=== PATIENT | female | born 1985 | race Two or more races ===

== ENCOUNTER 2018-12-23 07:31 | Emergency (ER) | payer SELFPAY ==
[~2018-12-23] VITALS: Ht 157.5 cm; Wt 72.6 kg
[2018-12-23 07:49] VITALS: BP 133/80
== END 2018-12-23 08:52 | disposition home or self-care (01) ==
LOC: ER 07:31
DX: H61.23 Impacted cerumen, bilateral (principal); H60.93 Unspecified otitis externa, bilateral
CPT/HCPCS: 69209